=== PATIENT | male | born 1980 | race Two or more races ===

== ENCOUNTER 2022-08-16 08:52 | Day surgery (SDC) | payer OTHER ==
[2022-08-16] MEDS ORDERED: MIRALAX17 GM PO (09:52)
[2022-08-16] MEDS ORDERED: TYLENOL ARTHRI650 MG PO (09:52)
[2022-08-16] MEDS ORDERED: KETO10TA2 PO (09:52)
[2022-08-16] MEDS ORDERED: TRAMADOL HCL50 MG PO (09:52)
== END 2022-08-16 16:10 | disposition home or self-care (01) ==
LOC: CIR.AMB 08:52
PROVIDERS: ATTEND Surgery
DX: K40.90 Unilateral inguinal hernia, without obstruction or gangrene, not specified as recurrent (principal); Z20.822 Contact with and (suspected) exposure to COVID-19; F17.210 Nicotine dependence, cigarettes, uncomplicated